=== PATIENT | male | born 1960 | race Two or more races ===

== ENCOUNTER 2024-08-04 18:54 | Emergency (ER) | payer MEDICAID, SELFPAY ==
[2024-08-04 19:41] VITALS: BP 150/80; PULSE 64; RESP 18; TEMP 37.2; O2SAT 96
--- NOTE | 2024-08-04 20:06 | PD.EDUPEX ---
Upper Extremity Injury RME/HPI General Chief Complaint: Extremity Injury, Upper Stated Complaint: LEFT ARM LACERATION INJURY Time Seen by Provider: 08/04/24 19:46 Arrival date/time: 08/04/24 18:54 RME / HPI RME / HPI narrative: 64-year-old male patient came in for evaluation regarding laceration to the left arm. Onset of symptoms earlier today while cutting trees accidentally injure himself with a electric saw. Patient sustained 4 cm gaping laceration, forearm volar aspect. Patient is able to bend and extend the fingers without any limitation. Tetanus vaccination is 2 years old. Related Data Home Medications ?Medication ?Instructions ?Recorded ?Confirmed aspirin 81 mg tablet,delayed 81 mg PO DAILY 09/04/21 07/28/22 release Held on 07/28/22. Instructions: Resume on 07/31/22. atorvastatin 80 mg tablet 80 mg PO DAILY 09/04/21 07/28/22 carvedilol 6.25 mg tablet 6.25 mg PO BID 09/04/21 07/28/22 clopidogrel 75 mg tablet 75 mg PO QDAY 09/04/21 07/28/22 Held on 07/28/22. Instructions: Resume on 07/31/22. fenofibrate nanocrystallized 48 mg 54 mg PO DAILY 09/04/21 07/28/22 tablet metformin 500 mg tablet 500 mg PO QDAY 09/04/21 07/28/22 omeprazole 40 mg capsule,delayed 40 mg PO DAILY 09/04/21 07/28/22 release Allergies Allergy/AdvReac Type Severity Reaction Status Date / Time No Known Allergies Allergy Verified 08/04/24 18:57 Review of Systems Review of Systems Narrative Review of Systems: Review of system reviewed and within normal limits except mentioned in HPI ED Exam Narrative Physical exam: VITAL SIGNS: Reviewed. GENERAL APPEARANCE: Alert and interactive, follows commands, no acute distress, HEAD AND FACE: Non-traumatic. ENT: PERRL, pink conjunctivitis, eyelid no trauma, Mucous membrane moist. NECK: Supple, nontender, no nuchal rigidity. RECTAL: Deferred. GENITAL: Deferred. NEUROLOGICAL: Gross motor function intact sensory function intact, Appropriate for age. MUSCULOSKELETAL: low back nontender, full range of motion. EXTREMITIES: 4 cm laceration to the forearm with minimal bleeding, full range of motion. Of the wrist fingers and elbow SKIN: Color pink, dry, no rash, no lacerations, no abrasions, no contusions. LYMPHATICS: Deferred. Course Quality Measures none Vital Signs Vital signs: Vital Signs Temperature 99.0 F 08/04/24 19:41 Pulse Rate 64 08/04/24 19:41 Respiratory Rate 18 08/04/24 19:41 Blood Pressure 150/80 H 08/04/24 19:41 Pulse Oximetry (%) 96 08/04/24 19:41 Oxygen Delivery Method Room Air 08/04/24 19:41 Procedures -ED Laceration Laceration 1: Site: other (Left forearm) Size (cm): 4 Description: linear Depth: simple, single layer Local Anesthetic: lidocaine 1% Amount of anesthesia used (mL): 10 Pre-repair: wound explored and irrigated extensively Skin layer closed with: nylon Size (cm): 4-0 Number of sutures: 7 Technique: simple, interrupted Extremity Injury MDM Narrative MDM Narrative:: 64-year-old male patient came in for evaluation regarding laceration to the left arm. Onset of symptoms earlier today while cutting trees accidentally injure himself with a electric saw. Patient sustained 4 cm gaping laceration, forearm volar aspect. Patient is able to bend and extend the fingers without any limitation. Tetanus vaccination is 2 years old. Repair and suturing was done by me. See procedure notes patient tolerated the procedure well. Sterile dressing applied Patient data External records reviewed:: None Clinical information provided by:: patient Social determinants that could affect healthcare access:: none Patient has the following chronic illnesses:: Hypertension hypercholesterolemia CAD How is presenting disease/condition affected by chronic disease/condition?: uneffected by Evaluation data The following diagnostics were reviewed and interpreted by me:: other (specify) (None) Lab and/or radiology exams considered but not ordered:: None Interpretation Summary: None Medications / Prescriptions Medications or Prescriptions considered but not ordered:: None Medication administrations:: None Consultations Consultation(s) initiated? (list below): No Diagnosis Upper Extremity Injury Differential Diagnosis: other (Laceration forearm, avulsion contusion) Most likely diagnosis given after review of the tests above:: Laceration forearm Admission Indicated Admission indicated?: not indicated Admission Request Was there a request for admission?: No Disposition Plan Disposition Plan: Discharge Discharge Attestation Discharge Attestation: The patient and all family members were given an opportunity to ask questions and understood the discharge instructions. Discharge instructions specifically effects, indications for sooner follow up or return to the emergency department, and the expected course of current diagnosis. Patient condition: Stable Discharge Plan Plan Patient Disposition: HOME (Self Care) Disposition Comment: Stable Prescriptions/Referrals Prescriptions/Med Rec: No Action metformin 500 mg Tablet 500 mg PO QDAY atorvastatin 80 mg tablet 80 mg PO DAILY Patient Comments: TAKE 1 TABLET BY MOUTH ONCE DAILY AT BEDTIME FOR 30 DAYS carvedilol 6.25 mg Tablet 6.25 mg PO BID clopidogrel 75 mg Tablet 75 mg PO QDAY omeprazole 40 mg capsule,delayed release(DR/EC) 40 mg PO DAILY aspirin 81 mg Tablet,Delayed Release (Dr/Ec) 81 mg PO DAILY fenofibrate nanocrystallized 48 mg tablet 54 mg PO DAILY Patient Comments: TAKE 1 TABLET BY MOUTH ONCE DAILY FOR 90 DAYS Problem List Clinical Impression: Laceration of forearm Patient/Caregiver Discharge Instructions Discharge Activity: activity as tolerated Education Materials: ED Laceration: All Closures Additional Instructions: Thank you for the opportunity for serving you today. You are stable for discharged . You are advised to: Follow-up with your PCP in 1 to 2 days Return to ED for worsening of symptoms Increase oral fluids Daily dressing with triple antibiotic, for removal of sutures 10 days Print Language: [place] Stand Alone Forms: Aline Award Info., Patient Portal Info Letter JESSICA/EDGAR Supervising Physician JESSICA/EDGAR Supervising Physician: MD Katelin
== END 2024-08-04 20:40 | disposition home or self-care (01) ==
LOC: SERX 21:30
PROVIDERS: Emergency Provider Emergency Medicine
DX: S51.812A Laceration without foreign body of left forearm, initial encounter (principal); W29.3XXA Contact with powered garden and outdoor hand tools and machinery, initial encounter
CPT/HCPCS: 12002; 99281; 99283